=== PATIENT | female | born 1975 | race Caucasian/White ===

== ENCOUNTER 2016-07-21 23:50 | Inpatient (IN) | payer OTHER ==
[2016-07-22] MEDS ORDERED: LACTATED RINGERS SOLUTION 1,000 ML IV SCH
[2016-07-22] MEDS ORDERED: PROMETHAZINE HCL 25 MG/1 ML VIAL IVPUSH PRN (00:35)
[2016-07-22] MEDS ORDERED: BUTORPHANOL TARTRATE 1 MG/ML VIAL IVPUSH PRN (00:35)
[2016-07-22 00:36] LABS: BASOPHIL 0.2 % (0-2.0); EOSINOPHIL 0.5 % (0-4.5); MCH 30.7 pg (25.7-33.7); MEAN CELL VOLUME 90.5 fl (80-96); MEAN PLT VOLUME 10.8 fl (7.5-11.1); NEUTROPHILS 67.4 % (42.8-82.8); PLATELET COUNT 200 K/MM3 (134-434); RDW 14.2 % (11.6-15.6); WHITE BLOOD COUNT 9.6 K/mm3 (4.0-10.0)
[2016-07-22 00:44] VITALS: BMI 32.6
[2016-07-22] MEDS ORDERED: OXYTOCIN 15 UNITS/ LR 250 ML 250 ML IVPB SCH ×2 (00:45→02:45)
[2016-07-22 00:50] LABS: INR 0.96 (0.82-1.09); PROTHROMBIN TIME (PATIENT) 10.5 SEC (9.98-11.88)
[2016-07-22 00:53] LABS: ACTIVATED PTT 27.8 SECONDS (26.9-34.4)
[2016-07-22 00:56] LABS: CALCIUM 9.3 mg/dL (8.5-10.1); CREATININE 0.6 mg/dL (0.55-1.02)
[2016-07-22] MEDS ORDERED: DEXTROSE 5%-LACTATED RINGERS 1,000 ML IV SCH (02:45)
--- NOTE | 2016-07-22 02:47 | HP ---
Admitting History and Physical - Admission Chief Complaint: labor pains, srom History of Present Illness: 40 y/o at 37 weeks comes for srom. Pt of [facility] new onset gdm. States srom at 11pm History Source: Patient Limitations to Obtaining History: No Limitations - Past Medical History [employer]: No: Alzheimer's, CVA, Dementia, Migraine, Multiple Sclerosis, Peripheral Neuropathy, Parkinson's, Seizure, Syncope, TIA, Vertigo, Other Cardiovascular: No: AFIB, Aneurysm, Aortic Insufficiency, Aortic Stenosis, CAD, CHF, Deep Vein Thrombosis, HTN, Hyperlipdemia, HI, Mitral Insufficiency, Mitral Stenosis, Murmur, Pulmonary Hypertension, Other Pulmonary: No: Asthma, Bronchitis, Cancer, COPD, O2 Dependent, Pneumonia, Previously Intubated, Pulmonary Embolus, Pulmonary Fibrosis, Sleep Apnea, Other Gastrointestinal: No: Ascites, Cancer, Constipation, Crohn's Disease, Diverticulitis, Diverticulosis, Esophageal Varices, Gastritis, GERD, GI Bleed, Hemorrhoids, Hiatal Hernia, Inflamatory Bowel Disease, Irritable Bowel Disease, Pancreatitis, Peptic Ulcer Disease, Ulcerative Colitis, Other Hepatobiliary: No: Cirrhosis, Cholelithiasis, Cholecystitis, Choledocholithiasis , Hepatitis A, Hepatitis B, Hepatitis C, Other Renal/: No: Renal Failure, Renal Inusuff, BPH, Cancer, Hematuria, Hemodialysis , Neurogenic Bladder, Renal Calculi, UTI, Other ...LMP: 11/19/14 ...: 5 ...Para: 3 Infectious Disease: No: AIDS, C-Diff, Herpes Zoster, HIV, MRSA, STD's, Tuberculosis, VREF, Other Psych: Yes: Addictions, Anxiety, Bipolar, Depression, Panic, Psychosis, Schizophrenia, Other Musculoskeletal: No: Bursitis, Chronic low back pain, Hemiparesis, Hemiplegia, Osteoarthritis, Paraplegia, Other ENT: No: Allergic Rhinitis, Sinusitis, Other Endocrine: No: Charles's Disease, [place]'s Disease, Diabetes Insipidus, Diabetes Mellitus, Hyperparathyroidism, Hyperthyroidism, Hypothyroidism, Osteopenia, SIADH, Other - Past Surgical History Past Surgical History: No: None, AAA Repair, AICD, Amputation, Appendectomy, Arthrosocopy, AV Fistula/Graft, Bariatric Surgery, Breast Biopsy, Bypass, CABG, Carotid Endarterectomy, Cataract Removal, Cholecystectomy, Colectomy, Colonoscopy, Colostomy, Craniotomy, , Cystectomy, Hernia Repair, Hysterectomy, Ileal Conduit, Ileosotomy, Joint Replacement, Kidney Transplant, Laminectomy, Liver Transplant, Mastectomy, Nephrectomy, Oopherectomy, Orchiectomy, Permanent Pacemaker, Prostatectomy, Splenectomy, Stent, Thoracotomy , TURP, Tonsillectomy, Tubal Ligation, Upper Endoscopy, Valve Replacement, Vasectomy, Vein Stripping/Ligation - Advance Directives Advance Directives: No: Living Will, Health Care Proxy, DNR, Organ Donor, Tissue Donor - Smoking History Smoking history: Never smoked Have you smoked in the past 12 months: No - Alcohol/Substance Use Hx Alcohol Use: No History of Substance Use: denies: None, Cocaine, Heroin, Marijuana, Prescription , Tranquilizers - Social History Usual Living Arrangement: No: Alone, With Spouse, With Parent, With Significant Other, With Child, Assisted Living, Penitentiary, Other Home Medications - Allergies Allergies/Adverse Reactions: Allergies Allergy/AdvReac Type Severity Reaction Status Date / Time No Known Allergies Allergy Verified 02/12/15 09:07 - Home Medications Home Medications: Ambulatory Orders Vit/Iron Fumarate/FA [ Tablet] 1 each PO DAILY 02/12/15 Ferrous Sulfate 325 mg PO BID 07/22/16 Review of Systems - Review of Systems Constitutional: reports: No Symptoms Eyes: reports: No Symptoms HENT: reports: No Symptoms Neck: reports: No Symptoms Cardiovascular: reports: No Symptoms Respiratory: reports: No Symptoms Gastrointestinal: reports: No Symptoms Genitourinary: reports: No Symptoms Breasts: reports: No Symptoms Reported Musculoskeletal: reports: No Symptoms Integumentary: reports: No Symptoms Neurological: reports: No Symptoms Endocrine: reports: No Symptoms Physical Examination Vital Signs: Vital Signs Temperature 98.7 F 07/21/16 23:50 Pulse Rate 106 H 07/22/16 01:00 Respiratory Rate 20 07/22/16 01:00 Blood Pressure 116/93 07/22/16 01:00 O2 Sat by Pulse Oximetry (%) Constitutional: Yes: Well Nourished Eyes: Yes: WNL HENT: Yes: WNL Neck: Yes: WNL Cardiovascular: Yes: WNL Respiratory: Yes: WNL Gastrointestinal: Yes: WNL ...Rectal Exam: Yes: WNL Renal/: Yes: WNL Breast(s): Yes: WNL Musculoskeletal: Yes: WNL Extremities: Yes: Deformity (3 cm) Labs: CBC, BMP 07/22/16 00:20 07/22/16 00:20 Assessment/Plan as above pitocin consent
[2016-07-22] MEDS ORDERED: ACETAMINOPHEN 325 MG TABLET (FP) PO PRN (03:02)
[2016-07-22] MEDS ORDERED: BENZOCAINE 20% 57 GM BOTTLE TP PRN (03:02)
[2016-07-22] MEDS ORDERED: BENZOCAINE 28 GM HEMORRHOIDAL OINTMENT TP PRN (03:02)
[2016-07-22] MEDS ORDERED: WITCH HAZEL 50% (TUCKS) 40 PAD/JAR PAD TP PRN (03:02)
[2016-07-22] MEDS ORDERED: IBUPROFEN 600 MG TABLET (FP) PO PRN (03:02)
[2016-07-22] MEDS ORDERED: METHYLERGONOVINE MALEATE 0.2 MG/1 ML AMP IM PRN (03:02)
[2016-07-22] MEDS ORDERED: BISACODYL 10 MG SUPP.RECT RC PRN (03:02)
--- NOTE | 2016-07-22 03:05 | PN ---
Progress Note (short form) - Note Progress Note: doing well, pushing with good efforts
[2016-07-22] MEDS ORDERED: OXYTOCIN 20 UNITS in 0.9% NS 1,000 ML IV SCH (03:15)
[2016-07-23 08:35] LABS: BASOPHIL 0.4 % (0-2.0); EOSINOPHIL 0.9 % (0-4.5); MCH 30.5 pg (25.7-33.7); MCHC 33.5 g/dl (32.0-36.0); MEAN CELL VOLUME 91.1 fl (80-96); MEAN PLT VOLUME 10.1 fl (7.5-11.1); NEUTROPHILS 66.9 % (42.8-82.8); PLATELET COUNT 170 K/MM3 (134-434); RDW 14.4 % (11.6-15.6); WHITE BLOOD COUNT 11.6 K/mm3 (4.0-10.0)
--- NOTE | 2016-07-23 12:52 | PN ---
Progress Note (short form) - Note Progress Note: ppd 1 doing well, no c/o uterus firm, non tender lochia milld no calf tenderness CBC, BMP 07/23/16 07:50 07/22/16 00:20 Last Vital Signs Temp Pulse Resp BP Pulse Ox 97.8 F 90 20 131/72 07/23/16 09:00 07/23/16 09:00 07/23/16 09:00 07/23/16 09:00 plan ambulate , , plan for d/c home in am
[2016-07-23] MEDS ORDERED: SENNOSIDES/DOCUSATE COMBO (SENNA PLUS) TABLET (UD) PO PRN (22:00)
--- NOTE | 2016-07-24 07:41 | PN ---
Post Progress Note - Subjective Subjective: no complains Post Day: 2 Type of Delivery: Vital Signs: Vital Signs Temperature 98.8 F 07/23/16 22:00 Pulse Rate 92 H 07/23/16 22:00 Respiratory Rate 20 07/23/16 22:00 Blood Pressure 120/73 07/23/16 22:00 O2 Sat by Pulse Oximetry (%) Breast Exam: Yes: Soft, Other (No BF ). No: Engorged Uterus: Yes: Fundus Firm, Fundus below umbilicus, Non-tender Lochia: Yes: Rubra Lochia, amount: Moderate Extremities: Yes: Calves non-tender Perineum: Yes: Intact Activity: Ambulating - Labs Labs: CBC WBC 11.6 K/mm3 (4.0-10.0) H 07/23/16 07:50 RBC 3.81 M/mm3 (3.60-5.2) 07/23/16 07:50 Hgb 11.7 GM/dL (10.7-15.3) D 07/23/16 07:50 Hct 34.8 % (32.4-45.2) 07/23/16 07:50 MCV 91.1 fl (80-96) 07/23/16 07:50 MCHC 33.5 g/dl (32.0-36.0) 07/23/16 07:50 RDW 14.4 % (11.6-15.6) 07/23/16 07:50 Plt Count 170 K/MM3 (134-434) 07/23/16 07:50 MPV 10.1 fl (7.5-11.1) 07/23/16 07:50 Neutrophils % 66.9 % (42.8-82.8) 07/23/16 07:50 Lymphocytes % 23.1 % (8-40) 07/23/16 07:50 Monocytes % 8.7 % (3.8-10.2) 07/23/16 07:50 Eosinophils % 0.9 % (0-4.5) 07/23/16 07:50 Basophils % 0.4 % (0-2.0) 07/23/16 07:50 Assessment/Plan stable. discharge tpday.
[2016-07-24 08:27] VITALS: BP 133/76; PULSE 86; TEMP 98.4
--- NOTE | 2016-10-12 14:04 | DS ---
DATE OF ADMISSION: 07/21/2016 DATE OF DISCHARGE: 07/24/2016 The patient was seen throughout the hospital course and noted to be doing well. The patient was subsequently discharged home to be followed up in the office. KENDRICK RAMIREZ M.D. TERRENCE/[id number]
== END 2016-07-24 13:00 | disposition home or self-care (01) | DRG 560 ==
LOC: JLDR 23:50 → J3W 07-22 04:09
PROVIDERS: ADMIT Obstetrics & Gynecology; ATTEND Obstetrics & Gynecology
PROC: 10E0XZZ Delivery of Products of Conception, External Approach (ICD-10-PCS; principal; 2016-07-22)
DX: O09.523 Supervision of elderly multigravida, third trimester (principal); Z3A.37 37 weeks gestation of pregnancy; Z37.0 Single live birth
CPT/HCPCS: 36415; 59409; 80048; 85025; 85610; 85730; 86593; 86850; 86900; 86901